=== PATIENT | female | born 1950 | race Caucasian/White ===

== ENCOUNTER 2019-01-13 00:12 | Outpatient (CLI) | payer MEDICARE, BC, SELFPAY ==
--- NOTE | 2019-01-13 12:50 | DI.DEXA_ITS ---
EXAM: XR DEXA BONE DENSITY W/WO ESTELA INDICATION: postmenopausal,screening for osteoporosis, z78.0. COMPARISON: 2006 TECHNIQUE: 2D digital imaging was performed. FINDINGS: The ESTELA image shows no evidence of compression fractures. The bone mineral density measurements of t he lumbar spine correspond to a total T-score of 2.0, in the normal range. This represents an increa se in bone density of 14.2 percent. The bone mineral density measurements of the left hip correspond to a total T-score of 1.4, also in the normal range. This is a 6.4 percent increase when compared w ith 2006. The bone mineral density measurements of the left forearm correspond to a total T-score of 0.9, in the normal range. The forearm was not imaged on the previous exam. IMPRESSION: Normal bone mineral density.
== END 2019-01-13 00:32 ==
PROVIDERS: PCP Nurse Practitioner Family; Visit Provider Nurse Practitioner Family
DX: Z13.820 Encounter for screening for osteoporosis (principal); Z78.0 Asymptomatic menopausal state
CPT/HCPCS: 77080

== ENCOUNTER 2020-09-25 03:12 | Outpatient (CLI) | payer OTHER, SELFPAY ==
[2020-09-25 07:44] LABS: Hemoglobin A1C 5.7 % (<5.7)
[2020-09-25 08:35] LABS: Anion Gap 10.4 mmol/L (3-11); BUN 23 mg/dL (7-18); CO2 26.6 mmol/L (21.0-32.0); CREATININE 0.7 mg/dL (0.55-1.02); Calcium 8.9 mg/dL (8.5-10.1); Calculated LDL 130 mg/dL (<100); Chloride 108 mmol/L (98-107); Cholesterol 206 mg/dL (<200); Glucose 94 mg/dL (74-106); HDL Cholesterol 61 mg/dL (40-60); Potassium 4.5 mmol/L (3.5-5.1); Sodium 145 mmol/L (136-145); TSH 1.67 uIU/mL (0.36-3.74); Triglyceride 75 mg/dL (<150)
[2020-09-25 09:07] LABS: FREE T4 0.88 ng/dL (0.76-1.46)
== END 2020-09-25 03:13 | disposition home or self-care (01) ==
LOC: LBO 03:12
PROVIDERS: PCP Nurse Practitioner Family; Visit Provider Nurse Practitioner Family
DX: E04.9 Nontoxic goiter, unspecified (principal); E78.5 Hyperlipidemia, unspecified; R73.01 Impaired fasting glucose
CPT/HCPCS: 36415; 80048; 80061; 83036; 84439; 84443

== ENCOUNTER 2020-12-31 04:36 | Emergency (ER) | payer OTHER, SELFPAY ==
[2020-12-31] VITALS (37 sets, daily range): BP systolic 162–186; BP diastolic 72–89; PULSE 81–99; RESP 13–23; TEMP 36.7; O2SAT 97–100
--- NOTE | 2020-12-31 04:30 | RT.EKG_ITS ---
APPROVED REPORT Exam: Resting ECG Reason for Exam: chest pain Patient Location: E HR:88 bpm ECG Measurements Heart Rate 88 AXIS UT 219 P 74 QRSd 151 QRS -13 QT 401 T 130 QTc 486 Conclusion Sinus rhythm...normal P axis, V-rate 60- 99 Borderline prolonged UT interval...UT >212, V-rate 50- 90 Left bundle branch block...QRSd>120, broad/notched R ST elevation secondary to IVCD...Multiple VCG criteria Physician: Rate 88, sinus rhythm, left bundle branch block, no prior EKG for comparison, negative SCA RBOSSA criteria
--- NOTE | 2020-12-31 05:07 | W.ED.GENAD ---
Discharge Plan Disposition [facility] Condition: Serious Discharge Details Clinical Impression: Non-ST elevation PA (NSTEMI), Complete left bundle branch block Primary Care Provider: Yudy Vigil ED Provider: Marilin Fitzpatrick Home Meds and New Rx's Prescriptions: No Action Shingrix (PF) 50 mcg/0.5 mL suspension for reconstitution 0.5 ml IM ONCE Qty: 1 RF: 0 multivitamin 1 EACH tablet 1 ea PO DAILY RF: 0 ibuprofen [Advil] 200 mg Tablet 200 mg PO Q6H PRNRF: 0 cholecalciferol (vitamin D3) [Vitamin D3] 10 mcg (400 unit) Capsule 10 mcg PO DAILY RF: 0 Discharge Data Discharge Date/Time-TO BE ENTERED AT DEPARTURE: 12/31/20 08:43 Medical Decision Making <Ric Prieto DO - Last Filed: 12/31/20 08:12> 70-year-old female with a past medical history of being prediabetic, high cholesterol, thyroid goiter, presents today for evaluation of chest pain. Patient states that yesterday she did a significant amount of raking, shortly after which she developed some mild chest tightness in her upper chest and right and left shoulders. She describes it as a mild ache in tightness, no severe pain. No significant pleuritic chest pain. She denies any history of pulmonary embolism in the past. She denies any exertional chest discomfort. She denies any personal or family history of cardiac disease. Currently she states that her pain is only 2 out of 10. No other complaints at this time. No other modifying factors. Symptoms are not changed by sitting up or lying back. Symptoms are unchanged by deep breath. She denies any recent long trips or surgeries, she denies any exogenous estrogen use. Physical exam demonstrates no reproducible chest wall tenderness, no rash to suggest shingles, no calf tenderness. No other abnormalities. Differential includes PE, less likely ACS but this is certainly on the differential with her age and risk factors. EKG shows evidence of a left bundle branch block, no prior EKG for comparison. Will give full dose aspirin. Pain is only 2 out of 10 at this point, I do not feel that nitroglycerin is needed right now. Get a CTA pending D-dimer, monitor closely and reassess. 7 AM Laboratory work-up is returned, no white count bandemia or left shift, D-dimer 673, proBNP is 999 suggesting potential for mild cardiac strain. Troponin has returned positive at 0.5, correlating with proBNP there may be a heart strain from recent cardiac ischemia. We will heparinize the patient and give 300 of Plavix. We did contact [facility] and discussed the case with Dr. Stoddard, he agrees with the heparin and Plavix, does recommend further cardiac evaluation however they have no beds at this current time. They will place the patient on the list. Recommend admission at [facility] for the time being. Will contact hospitalist. 7:45 AM I was called back by Dr. Miller, and at this time he reviewed the case with his neighborhood planner, and they recommend adding ticagrelor in addition to his current treatment. They also feel that because of the left bundle branch block, of uncertain age etiology that this should be treated emergently with cardiac catheterization. I did ask if we should use thrombolytics and at this point they recommend holding off on any thrombolytics and continuing the heparinization. Recommend prompt transfer to [facility]. Case will be signed out to my colleague Dr. Ai Fitzpatrick until the patient is transferred to [facility]. On reassessment the patient states her pain is essentially 0-1 at this time, she feels well otherwise. EKG 4:46 AM Rate 88, sinus rhythm, left bundle branch block, no prior EKG for comparison, negative SCARBOSSA criteria <Marilin Fitzpatrick MD - Last Filed: 01/07/21 17:19> Radha Nam is a 70 y/o woman with NSTEMI, on heparin gtt signed out to by Dr. Prieto with transfer to [facility] Ms Sql Server Developer pending, awaiting approval from [facility]. 8:17 Contacted by [facility] cardiology team, accepting physician luceor Maya to send now with medics by ground. Plan for transfer. Pt remains pain free. Pt left ED with medics without further issue. Medical Records Medical records reviewed: Yes I reviewed the patient's medical records. HPI <Ric Prieto DO - Last Filed: 12/31/20 08:12> General Date/Time Provider Initiated Documentation: 12/31/20 04:54. HPI Narrative: 70-year-old female with a past medical history of being prediabetic, high cholesterol, thyroid goiter, presents today for evaluation of chest pain. Patient states that yesterday she did a significant amount of raking, shortly after which she developed some mild chest tightness in her upper chest and right and left shoulders. She describes it as a mild ache in tightness, no severe pain. No significant pleuritic chest pain. She denies any history of pulmonary embolism in the past. She denies any exertional chest discomfort. She denies any personal or family history of cardiac disease. Currently she states that her pain is only 2 out of 10. No other complaints at this time. No other modifying factors. Symptoms are not changed by sitting up or lying back. Symptoms are unchanged by deep breath. She denies any recent long trips or surgeries, she denies any exogenous estrogen use. Related Data Home Medications Medication Instructions Recorded Confirmed multivitamin 1 ea PO DAILY 07/25/13 12/31/20 varicella-zoster glycoE [id number] 0.5 ml IM ONCE #1 ea 07/27/20 07/27/20 adj(PF) 50 mcg/0.5 mL IM susp, kit cholecalciferol (vitamin D3) 10 mcg PO DAILY 12/31/20 12/31/20 [Vitamin D3] ibuprofen [Advil] 200 mg PO Q6H PRN 12/31/20 12/31/20 Previous Rx's Medication Instructions Recorded varicella-zoster glycoE vacc-[id number] 0.5 ml IM ONCE #1 ea 07/27/20 adj(PF) 50 mcg/0.5 mL IM susp, kit Allergies Allergy/AdvReac Type Severity Reaction Status Date / Time doxycycline Allergy Mild ITCHING Unverified 12/31/20 07:24 HANDS AND FEET Penicillins Allergy Unknown Unverified 12/31/20 07:24 General Stated Complaint: Chest Pain RICHARD: 3 Review of Systems <Ric Prieto DO - Last Filed: 12/31/20 08:12> All systems reviewed & are unremarkable except as noted in HPI and below PFSH <Ric Prieto DO - Last Filed: 12/31/20 08:12> Medical History Hyperlipidemia Ocular migraine Prediabetes Thyroid goiter TMJ (temporomandibular joint syndrome) Surgical History S/P cholecystectomy (03/05/04) S/P colonoscopy (09/02/18) S/P exploratory laparotomy (~1985) For evaluation of infertility Family History Mother , at 57 Gallbladder cancer Father , at 86 of PNA Parkinson disease Brother Heart disease Hypertension Asthma Maternal Grandfather , in his 90s No problems noted. Maternal Grandmother , in her 60s of PA Heart disease Myocardial infarction Paternal Grandfather , at 57 of leukemia Leukemia Paternal Grandmother , at 80 Cancer Unknown type Social History Smoking/Tobacco Use Status: Never Second Hand Exposure: Yes Smoking risk assessment performed?: Yes Alcohol Intake: never Drug use: Never Caregiver/Support person: No Household members: spouse Housing: house Communication Needs: None Pets and animals: Yes Pets and animals: dog(s) Current gender identity: female What is your relationship status?: How often do you talk on the phone with friends or family?: three or more times per week How often do you get together with friends or relatives?: decline to answer How often do you attend religious or voodoo services?: decline to answer Do you belong to any clubs or organized social groups?: decline to answer Panel score (0-1 are the most socially isolated patients): 2 What type of physical activity do you participate in: other Duration: < 15 minutes/day Frequency: decline to answer Elissa/Baptist: No preference Special elissa needs: No Seatbelt use: always Drive intox or ride w/intox grain combine driver: No Do you feel safe in your relationship?: Yes History History 0 Para Hx # Term Pregnancies Multiple births Hx # Pregnancies Ectopic pregnancies AB induced Hx Number of Living Children AB spontaneous Exam <Ric Prieto DO - Last Filed: 12/31/20 08:12> Narrative Exam Narrative: 1.Const: Well-nourished, Well-developed, appearing stated age 2.Eyes: PERRL, no conjunctival injection, and symmetrical lids. 3.ENT: Atraumatic external nose and ears. Moist MM. Neck: Symmetric, trachea midline, No thyromegaly. 4.CVS: +S1/S2, No murmurs or gallops. Peripheral pulses 2+ and equal in all extremities. Brisk capillary refill in all extremities. No reproducible chest pain. 5.RESP: Unlabored respiratory effort. Clear to auscultation bilaterally. No wheezes rales or rhonchi 6.GI: Soft, Nontender/Nondistended, No hepatosplenomegaly. No guarding or rebound. 7.MSK: Normocephalic/Atraumatic, Extremities w/o deformity or ttp No cyanosis or clubbing, Normal movement of all extremities, no calf tenderness. 8.Skin: Warm, Dry. No rashes or lesions. 9.Neuro: mgmt consultant II-XII grossly intact. Sensation grossly intact, no focal neurologic deficits. 10.Psych: (AAO) x3. Appropriate mood and affect Course <Ric Prieto DO - Last Filed: 12/31/20 08:12> Vital Signs Vital signs: Vital Signs Temperature 36.7 C 12/31/20 04:58 Pulse 91 H 12/31/20 04:58 Respiratory Rate 18 12/31/20 04:58 Blood Pressure 162/89 H 12/31/20 04:58 Pulse Oximetry 99 12/31/20 04:58 Temperature 36.7 C 12/31/20 04:58 Temperature Source Temporal Artery Scan 12/31/20 04:58 Pulse 91 H 12/31/20 04:58 Respiratory Rate 18 12/31/20 04:58 Blood Pressure 162/89 H 12/31/20 04:58 Blood Pressure Position Sitting 12/31/20 04:58 Pulse Oximetry 99 12/31/20 04:58 Oxygen Delivery Method Room Air 12/31/20 04:58 Oxygen Flow Rate 0 12/31/20 04:58 Pain Level 0 12/31/20 04:58 Critical Care Time <Ric Prieto DO - Last Filed: 12/31/20 08:12> Critical Care Time Critical Care Time: Yes Total Critical Care Time: 45 Attestation: Upon my evaluation, this patient had a high probability of imminent or life-threatening deterioration, which required my direct attention, intervention, and personal management. I have personally provided 45 minutes of critical care time exclusive of time spent on separately billable procedures. Time includes review of laboratory data, radiology results, discussion with consultants, and monitoring for potential decompensation. Interventions were performed as documented. Sign Out <Ric Prieto DO - Last Filed: 12/31/20 08:12> Sign Out Data: Sign Out Comment: NSTEMI, going to [facility] for cardiac catheterization, currently heparinized. Awaiting bed confirmation Last updated by Ric Prieto DO at 12/31/20 08:01
[2020-12-31] MEDS: Aspirin 81 MG CHEW 324 MG CH (05:15)
[2020-12-31 05:19] LABS: Abs Immature Grans 0.02 10^3/uL (0.0-0.06); Absolute Basophil Count 0.06 10^3/uL (0.0-0.2); Absolute Eosinophil Count 0.24 10^3/uL (0.0-0.7); Absolute Lymphocyte Count 2.49 10^3/uL (1.2-3.4); Absolute Neutrophil Count 4.36 10^3/uL (1.2-6.7); Basophils % 0.8; Eosinophils % 3.1; HCT 43.3 % (36.0-46.0); HGB 14.2 g/dL (11.2-15.7); Immature Grans % 0.3; MCH 28.9 pg (27.0-33.0); MCHC 32.8 % (32.0-36.0); MPV 10.2 fL (8.0-11.0); Monocytes % 7.7; Neutrophils % 56.1; Nucleated RBC 0 %; Platelet Count 298 10^3/uL (130-400); RBC 4.92 10^6/uL (3.93-5.22); RDW 12.6 % (11.7-14.6); RDW-SD 40.6 fL; WBC 7.77 10^3/uL (4.4-10.8)
[2020-12-31 05:36] LABS: PTT Activated 23.9 sec (21.0-27.5); Prothrombin Time 10.2 sec (9.3-11.0)
[2020-12-31 05:40] LABS: ALT 31 U/L (14-59); AST 20 U/L (15-37); Alkaline Phosphatase 104 U/L (46-116); Anion Gap 8.2 mmol/L (3-11); BUN 21 mg/dL (7-18); Bilirubin, Total 0.8 mg/dL (0.2-1.0); CO2 28.8 mmol/L (21.0-32.0); Calcium 9.2 mg/dL (8.5-10.1); Chloride 106 mmol/L (98-107); Estimated GFR 55.14 (mL/min/1.73m2); Glucose 137 mg/dL (74-106); Lipase 164 U/L (73-393); NT-proBNP 999 pg/mL (<300); Sodium 143 mmol/L (136-145); Total Protein 7.1 g/dL (6.4-8.2); Troponin I 0.51 ng/mL (<0.06)
--- NOTE | 2020-12-31 05:45 | DI.CT_ITS ---
Exam(s) CT CHEST PE CTA EXAM: CT CHEST PE CTA CLINICAL HISTORY: nstemi, sob, cp. TECHNIQUE: Imaging Protocol: Axial CT angiography was performed with multi-slice acquisition and mu lti-planar and/or 3D reconstructions. CONTRAST MATERIAL: Intravenous: Omnipaque 350 Contrast volume:100 ml COMPARISON: CT HEAD AND CSPINE W/O CONTRAST from 12/31/2015 FINDINGS: Pulmonary Arteries: No evidence of filling defect to suggest pulmonary emboli. Tracheobronchial tree: Patent where visualized. Mediastinum and Liliane: No dominant adenopathy or fluid collection. Pulmonary parenchyma: No consolidation or dominant measurable mass. Atelectasis versus scarring lingu la. Expiratory changes. Pleura: No effusion or pneumothorax. Heart: The heart is not dilated. No coronary artery calcifications are seen. Aorta: Thoracic aorta non-dilated. Atherosclerotic changes descending aorta and upper abdominal aorta . Upper abdomen: Status post cholecystectomy. Severe narrowing at proximal celiac axis. Bones: Degenerative disc changes thoracic spine. Thyroid: Enlargement of both lobes, unchanged from prior cervical spine CT.. No visible masses. IMPRESSION: No evidence of pulmonary embolism. Severe narrowing the proximal celiac axis. Stable thyroid enlargement. RADIATION DOSE DELIVERED: 572.12mGy.cm Total DLP DATA REPOSITORY: All CT scans at this facility are submitted to the National Radiology Data Registry (NRDR) Dose Index Registry (DIR) with the [employer] (ACR). RADIATION OPTIMIZATION: All CT scans at this facility use at least one of these dose optimization te chniques: automated exposure control; mA and/or kV adjustment per patient size (includes targeted exa ms where dose is matched to clinical indication); or iterative reconstruction.
[2020-12-31 05:50] LABS: D-Dimer 673 ng/mlFEU (<500)
[2020-12-31] MEDS: Clopidogrel 300 MG TAB PO (06:34)
[2020-12-31] MEDS: Omnipaque 350 MG/ML 100 ML BTL IJ (06:34)
[2020-12-31] MEDS: Normal Saline Flush 10 ML SYR IVP (06:35)
[2020-12-31] MEDS: Normal Saline - Diluent 50 ML VIAL IV (06:35)
--- NOTE | 2020-12-31 07:14 | DI.VRAD_ITS ---
PROCEDURE INFORMATION: Exam: CTA Chest With Contrast Exam date and time: 12/31/2020 6:00 AM Age: 70 years old Clinical indication: Shortness of breath; Chest pressure; Prior surgery; Surgery date: 6+ months; Surgery type: Cholecystectomy; Patient HX: Nstemi, SOB, chest pain TECHNIQUE: Imaging protocol: Computed tomographic angiography of the chest with contrast. 3D rendering (Not supervised by radiologist): MIP and/or 3D reconstructed images were created by the technologist. Radiation optimization: All CT scans at this facility use at least one of these dose optimization techniques: automated exposure control; mA and/or kV adjustment per patient size (includes targeted exams where dose is matched to clinical indication); or iterative reconstruction. Contrast material: OMNIPAQUE 350; Contrast volume: 100 ml; Contrast route: INTRAVENOUS (IV); COMPARISON: CT HEAD AND CSPINE W/O CONTRAST 12/31/2015 3:52 PM FINDINGS: Pulmonary arteries: No pulmonary emboli. Aorta: Unremarkable. No aortic aneurysm. No aortic dissection. Other arteries: Severe proximal celiac artery stenosis (series 11 image 60.) Thyroid: Enlarged mildly heterogeneous thyroid. Lungs: Streaky opacity in the lingula, probably related to platelike atelectasis. No significant airspace consolidations. Pleural spaces: Unremarkable. No pneumothorax. No pleural effusion. Heart: Unremarkable. No cardiomegaly. No pericardial effusion. Lymph nodes: Unremarkable. No enlarged lymph nodes. Spleen: 1.3 cm splenule along the splenic margin. Bones/joints: Mild multilevel spondylosis. Soft tissues: Unremarkable. IMPRESSION: 1. Streaky opacity in the lingula, probably related to platelike atelectasis. No significant airspace consolidations. 2. No evidence of acute pulmonary emboli. 3. Severe proximal celiac artery stenosis. 4. Enlarged mildly heterogeneous thyroid. Correlate with thyroid function tests. Dictated and Authenticated by: Nash Stoll MD. Ordering:BHUPENDRA Larios MD
[2020-12-31] MEDS: Atorvastatin 40 MG TAB 80 MG PO (07:20)
[2020-12-31 09:02] LABS: Troponin I 0.95 ng/mL (<0.06)
== END 2020-12-31 08:43 | disposition short-term general hospital (02) ==
PROVIDERS: Student in an Organized Health Care Education/Training Program; Emergency Provider Student in an Organized Health Care Education/Training Program; PCP Nurse Practitioner Family
DX: I21.4 Non-ST elevation (NSTEMI) myocardial infarction (principal); I44.7 Left bundle-branch block, unspecified; R06.02 Shortness of breath
CPT/HCPCS: 36415; 71275; 80053; 83690; 93005; 96365; 96376; 99291; 83880; 84484; 85025; 85379; 85610; 85730; 93010; J3490

== ENCOUNTER 2021-01-23 04:32 | Outpatient (CLI) | payer OTHER, SELFPAY ==
[2021-01-23 10:57] LABS: ALT 52 U/L (14-59); AST 33 U/L (15-37); Alkaline Phosphatase 144 U/L (46-116); Anion Gap 8.6 mmol/L (3-11); BUN 18 mg/dL (7-18); Bilirubin, Total 0.8 mg/dL (0.2-1.0); CO2 28.4 mmol/L (21.0-32.0); CREATININE 0.9 mg/dL (0.55-1.02); Calculated LDL 41 mg/dL (<100); Chloride 106 mmol/L (98-107); Cholesterol 103 mg/dL (<200); Glucose 109 mg/dL (74-106); HDL Cholesterol 53 mg/dL (40-60); Potassium 4.4 mmol/L (3.5-5.1); Sodium 143 mmol/L (136-145); Total Protein 6.7 g/dL (6.4-8.2); Triglyceride 48 mg/dL (<150)
== END 2021-01-23 04:33 | disposition home or self-care (01) ==
LOC: LBO 04:32
PROVIDERS: PCP Nurse Practitioner Family; Visit Provider Nurse Practitioner Family
DX: E78.5 Hyperlipidemia, unspecified (principal); I21.4 Non-ST elevation (NSTEMI) myocardial infarction
CPT/HCPCS: 36415; 80053; 80061

== ENCOUNTER 2021-01-25 10:00 | Outpatient (RCR) | payer OTHER, SELFPAY | END 2021-01-27 23:59 | disposition home or self-care (01) | LOC: CR 10:00 | PROVIDERS: PCP Nurse Practitioner Family; Visit Provider Family Medicine | DX: Z51.89 Encounter for other specified aftercare (principal); I25.2 Old myocardial infarction | CPT/HCPCS: S9472 ==

== ENCOUNTER 2021-01-27 12:21 | Outpatient (REF) | payer MEDICARE, SELFPAY ==
[2021-01-27 14:06] LABS: C Diff PCR Negative (Negative)
== END 2021-01-27 12:22 | disposition home or self-care (01) ==
LOC: LBN 12:21
PROVIDERS: PCP Nurse Practitioner Family; Visit Provider Nurse Practitioner Family
DX: R19.7 Diarrhea, unspecified (principal)
CPT/HCPCS: 87493

== ENCOUNTER 2021-01-29 12:55 | Outpatient (CLI) | payer OTHER, SELFPAY ==
--- NOTE | 2021-01-29 12:57 | RT.EKG_ITS ---
APPROVED REPORT Exam: Resting ECG Reason for Exam: cad Patient Location: O HR:72 bpm ECG Measurements Heart Rate 72 AXIS IL 173 P 40 QRSd 144 QRS -10 QT 428 T 119 QTc 469 Conclusion Sinus rhythm...normal P axis, V-rate 50- 99 Left bundle branch block...QRSd>120, broad/notched R
== END 2021-01-29 12:56 | disposition home or self-care (01) ==
LOC: DI.CARD 12:58
PROVIDERS: PCP Nurse Practitioner Family; Referring Provider Nurse Practitioner Family; Visit Provider Internal Medicine Cardiovascular Disease
DX: I21.4 Non-ST elevation (NSTEMI) myocardial infarction (principal); I25.10 Atherosclerotic heart disease of native coronary artery without angina pectoris
CPT/HCPCS: 93010

== ENCOUNTER → 2021-01-29 12:55 | Outpatient (BNVA) | payer OTHER, SELFPAY | PROVIDERS: PCP Nurse Practitioner Family; Referring Provider Nurse Practitioner Family; Visit Provider Internal Medicine Cardiovascular Disease | DX: I25.10 Atherosclerotic heart disease of native coronary artery without angina pectoris (principal); I21.4 Non-ST elevation (NSTEMI) myocardial infarction; I44.7 Left bundle-branch block, unspecified; E78.5 Hyperlipidemia, unspecified | CPT/HCPCS: 93005; 99203; 99214 ==

== ENCOUNTER 2021-02-25 10:00 | Outpatient (RCR) | payer OTHER, SELFPAY | END 2021-02-26 23:59 | disposition home or self-care (01) | LOC: CR 10:00 | PROVIDERS: PCP Nurse Practitioner Family; Visit Provider Family Medicine | DX: Z51.89 Encounter for other specified aftercare (principal); I25.2 Old myocardial infarction; Z95.5 Presence of coronary angioplasty implant and graft | CPT/HCPCS: S9472 ==

== ENCOUNTER → 2021-02-26 13:23 | Outpatient (BNVA) | payer MEDICARE, SELFPAY | PROVIDERS: PCP Nurse Practitioner Family; Referring Provider Nurse Practitioner Family; Visit Provider Internal Medicine Cardiovascular Disease | DX: I25.10 Atherosclerotic heart disease of native coronary artery without angina pectoris (principal); I44.7 Left bundle-branch block, unspecified; E78.5 Hyperlipidemia, unspecified; Z79.899 Other long term (current) drug therapy | CPT/HCPCS: 99213 ==

== ENCOUNTER 2021-03-27 10:00 | Outpatient (RCR) | payer MEDICARE, SELFPAY | END 2021-03-29 23:59 | disposition home or self-care (01) | LOC: CR 10:00 | PROVIDERS: PCP Nurse Practitioner Family; Visit Provider Family Medicine | DX: Z51.89 Encounter for other specified aftercare (principal); I25.2 Old myocardial infarction; Z95.5 Presence of coronary angioplasty implant and graft | CPT/HCPCS: S9472 ==

== ENCOUNTER 2021-04-01 14:47 | Outpatient (RCR) | payer MEDICARE, OTHER, SELFPAY | END 2021-04-25 16:26 | LOC: CR 14:47 | PROVIDERS: PCP Nurse Practitioner Family; Visit Provider Family Medicine | DX: I25.2 Old myocardial infarction (principal); Z95.5 Presence of coronary angioplasty implant and graft; Z51.89 Encounter for other specified aftercare | CPT/HCPCS: S9472 ==

== ENCOUNTER 2021-04-10 10:00 | Outpatient (RCR) | payer MEDICARE, OTHER, SELFPAY | END 2021-04-29 23:59 | disposition home or self-care (01) | LOC: CR 10:00 | PROVIDERS: PCP Nurse Practitioner Family; Visit Provider Family Medicine | DX: I25.2 Old myocardial infarction (principal); Z95.5 Presence of coronary angioplasty implant and graft; Z51.89 Encounter for other specified aftercare | CPT/HCPCS: S9472 ==

== ENCOUNTER → 2021-06-27 13:13 | Outpatient (BNVA) | payer MEDICARE, OTHER, SELFPAY | PROVIDERS: PCP Nurse Practitioner Family; Visit Provider Internal Medicine Cardiovascular Disease | DX: I25.10 Atherosclerotic heart disease of native coronary artery without angina pectoris (principal); I44.7 Left bundle-branch block, unspecified; E78.5 Hyperlipidemia, unspecified | CPT/HCPCS: 99214; 99213 ==

== ENCOUNTER 2021-08-23 01:42 | Outpatient (CLI) | payer MEDICARE, OTHER, SELFPAY ==
--- OUTSIDE RECORDS SUMMARY | 2021-08-23 01:44 | XMS_ITS ---
:1950 Author Care Team Providers Name Role Phone DR. RIVAS GARCIA Primary Care Provider [phone] DR. RIVAS GARCIA Referring Provider [phone] Allergies Code Code System Name Reaction Severity Status Onset 3640 RxNorm Doxycycline ? ? Active ? Penicillins ? ? Active ? Medications Name Status Start Date Stop Date ? ? Advil PM 200 mg-38 mg tablet Active ? Not available Take 1 tablet every day by oral route at bedtime. clobetasol propionate (bulk) Active ? Not available topical solution add three drops to each ear bid ibuprofen 200 mg tablet Active ? Not avai lable Take 1 tablet every 6 hours by oral route as needed. multivitamin Active ? Not available once daily Problems Name Status Onset Date Source ? Polyp of Colon Active 01/27/2018 ? Goiter Active 01/27/2018 ? Hyperlipidemia Active 01/27/2018 ? Hypertensive Disorder Unknown 01/27/2018 ? Temporomandibular Joint Disorder Active 01/27/2018 ? Female Stress Incontinence Active 01/27/2018 ? Acute Dermatitis Active 01/27/2018 ? Notes: states she has a slight heart m urmur states she has TMJ states she has osteo arthritis in her th umbs, knees and hips Procedures Date Name Performed by ? ? Cholecystectomy Information not avai lable ? Colonoscopy Information not avai lable Notes: x3 Notes: exploratory for infertility Results Lab Results None recorded. Past Encounters None recorded. Social History Tobacco Smoking Status Never Smoker Notes: 01/28/18 Vaccine List Vaccine Type Tdap 08/15/2014 Plan of Care Reminders Provider Appointments None recorded. ? ? Lab None recorded. ? ? Referral None recorded. ? ? Procedures None recorded. ? ? Surgeries None recorded. ? ? Imaging None recorded. ? ? Vitals Height Weight BMI Blood Pressure 170.18 cm 99.79 kg 34.5 kg/m2 146/76 mm[Hg]
[2021-08-23 07:22] LABS: HCT 42.3 % (36.0-46.0); HGB 13.5 g/dL (11.2-15.7); MCH 28.8 pg (27.0-33.0); MCHC 31.9 % (32.0-36.0); MCV 90 fL (80-95); MPV 9.9 fL (8.0-11.0); Platelet Count 247 10^3/uL (130-400); RBC 4.68 10^6/uL (3.93-5.22); RDW 12.8 % (11.7-14.6); RDW-SD 42.2 fL; WBC 6.36 10^3/uL (4.4-10.8)
[2021-08-23 07:32] LABS: Hemoglobin A1C 5.6 % (<5.7)
[2021-08-23 08:07] LABS: ALT 27 U/L (14-59); AST 17 U/L (15-37); Alkaline Phosphatase 89 U/L (46-116); Anion Gap 7.6 mmol/L (3-11); BUN 23 mg/dL (7-18); Bilirubin, Total 0.9 mg/dL (0.2-1.0); CO2 29.4 mmol/L (21.0-32.0); CREATININE 0.8 mg/dL (0.55-1.02); Calcium 8.8 mg/dL (8.5-10.1); Calculated LDL 62 mg/dL (<100); Chloride 107 mmol/L (98-107); Cholesterol 147 mg/dL (<200); Glucose 92 mg/dL (74-106); HDL Cholesterol 72 mg/dL (40-60); Potassium 4.3 mmol/L (3.5-5.1); Sodium 144 mmol/L (136-145); TSH (W/Ref FT4) 1.72 uIU/mL (0.36-3.74); Total Protein 6.9 g/dL (6.4-8.2); Triglyceride 66 mg/dL (<150)
== END 2021-08-23 01:43 | disposition home or self-care (01) ==
LOC: LBO 01:43
PROVIDERS: PCP Nurse Practitioner Family; Visit Provider Family Medicine
DX: E78.5 Hyperlipidemia, unspecified (principal); I10 Essential (primary) hypertension; R53.83 Other fatigue; I25.10 Atherosclerotic heart disease of native coronary artery without angina pectoris; R73.9 Hyperglycemia, unspecified
CPT/HCPCS: 36415; 80053; 80061; 85027; 83036; 84443

== ENCOUNTER → 2021-12-26 13:10 | Outpatient (BNVA) | payer MEDICARE, OTHER, SELFPAY | PROVIDERS: PCP Nurse Practitioner Family; Visit Provider Internal Medicine Cardiovascular Disease | DX: I25.2 Old myocardial infarction (principal); I25.10 Atherosclerotic heart disease of native coronary artery without angina pectoris; I44.7 Left bundle-branch block, unspecified; E78.5 Hyperlipidemia, unspecified | CPT/HCPCS: 99213 ==

== ENCOUNTER 2022-04-07 15:23 | Emergency (ER) | payer MEDICARE, OTHER, SELFPAY ==
[2022-04-07 15:39] VITALS: BP 153/70; PULSE 84; RESP 20; TEMP 37.1; O2SAT 98
--- NOTE | 2022-04-07 17:00 | DI.RAD_ITS ---
Exam(s) XR SHOULDER RT COMPLETE 2+V EXAM: XR SHOULDER RT COMPLETE 2+V CLINICAL HISTORY: fall, anterior pain. TECHNIQUE: 2D digital imaging was performed of the right shoulder. Four images were obtained. AP, Grashey, and Y views were obtained. COMPARISON: No exams were available for comparison FINDINGS: BONES: No acute fracture is present. No bony destructive lesion is seen. JOINTS: No dislocation present. Mild degenerative changes are seen at the acromioclavicular joint and glenohumeral joint. SOFT TISSUE: Normal. IMPRESSION: No acute abnormality. DATA REPOSITORY: RADIATION DOSE DELIVERED:
[2022-04-07] MEDS: Acetaminophen 500 MG TAB 1000 MG PO (17:10)
--- NOTE | 2022-04-07 17:45 | DI.VRAD_ITS ---
PROCEDURE INFORMATION: Exam: XR Right Shoulder Exam date and time: 04/07/2022 5:20 PM Age: 71 years old Clinical indication: Other: Fall, anterior pain TECHNIQUE: Imaging protocol: Radiologic exam of the Right shoulder. Views: 2 or more views. COMPARISON: CT CHEST PE CTA 12/31/2020 6:13 AM FINDINGS: Bones/joints: There are mild degenerative changes of the glenohumeral joint. No fracture. No dislocation. Mild degenerative changes of the acromioclavicular joint. Soft tissues: Normal. IMPRESSION: No fracture. Dictated and Authenticated by: Gerry London MD. Ordering:HODA Gayle MD
--- NOTE | 2022-04-07 17:52 | ED.GENADUL_ITS ---
Discharge Plan Disposition Patient Disposition: Home Condition: Stable Discharge Details Clinical Impression: Injury of right shoulder Primary Care Provider: Yudy Vigil ED Provider: Irwin Wilcox Home Meds and New Rx's Prescriptions: Continued triamcinolone acetonide 0.1 % cream 1 applic topical BID Qty: 15 1RF aspirin 81 mg tablet,delayed release (DR/EC) 81 mg PO DAILY multivitamin 1 EACH tablet 1 ea PO DAILY rosuvastatin 20 mg tablet 20 mg PO DAILY Qty: 90 3RF metoprolol succinate 50 mg tablet extended release 24 hr 50 mg PO DAILY Qty: 90 3RF cholecalciferol (vitamin D3) [Vitamin D3] 10 mcg (400 unit) Capsule 10 mcg PO DAILY Discharge Instructions Instructions: Shoulder Sprain (ED), Shoulder Pain (ED) Additional Instructions: Please use sling for comfort and perform range of motion activities 3-4 times daily with sling use. Then slowly increase use of upper extremity as tolerated by pain. You may continue to take [id number] acetaminophen as needed for discomfort just do not take more than 3000 mg in a day. If you develop any new or significant worsening of symptoms return to the emergency department for reassessment otherwise follow-up with your primary care provider if not improving in the next 1 to 2 weeks. Referrals: Yudy Vigil, [facility] [Primary Care Provider] - 2 weeks (If not improving) Discharge Data Discharge Date/Time-TO BE ENTERED AT DEPARTURE: 04/07/22 18:16 Medical Decision Making Patient presenting to the emergency department for chief complaint of fall. Patient states right shoulder injury slight elbow pain. Denies head injury or other complaints. Physical exam shows tenderness to the anterior aspect of the shoulder with extremely painful range of motion with any movement of the shoulder. Elbow has full range of motion, no bony prominence tenderness, and only slight abrasion noted. We will give acetaminophen and perform x-ray imaging of the shoulder due to severe pain. Review of radiological imaging and radiologist interpretation shows no acute findings noted. Will give patient sling for comfort measures and encourage continued use of acetaminophen for pain. We recommend that patient follows up with primary care provider for reassessment if not improving in the next 1 to 2 weeks. After discussion of diagnosis and plan of care patient has no further needs, questions, or concerns and states clear understanding to return to the emergency department for any worsening symptoms. This documentation was generated using [employer] dictation system, please disregard any oddities of phrase or misspellings. Imaging Data Radiologic Study: Imaging: X-Ray Radiologist's impression: Exam(s) PROCEDURE INFORMATION: Exam: XR Right Shoulder Exam date and time: 04/07/2022 5:20 PM Age: 71 years old Clinical indication: Other: Fall, anterior pain TECHNIQUE: Imaging protocol: Radiologic exam of the Right shoulder. Views: 2 or more views. COMPARISON: CT CHEST PE CTA 12/31/2020 6:13 AM FINDINGS: Bones/joints: There are mild degenerative changes of the glenohumeral joint. No fracture. No dislocation. Mild degenerative changes of the acromioclavicular joint. Soft tissues: Normal. IMPRESSION: No fracture. HPI General Mode of arrival: ambulatory . Date/Time Provider Initiated Documentation: 04/07/22 16:16 . Limitations to Documentation: no limitations . Information obtained by: patient and RN notes reviewed . History of Present Illness 71 year old F presents to the emergency department with the chief complaint of Fall with right shoulder injury, described as moderate, with intensity rated at 5. Quality is described as aching and sharp, and is localized to the right and upper extremity. Patient reports no radiation. Patient started experiencing this hour(s) (1) and it has been constant. No relieving factors improve symptom(s), Movement worsens symptoms . Patient notes no other symptoms.. Patient did receive the following treatments prior to arrival, none Related Data Home Medications Medication Instructions Recorded Confirmed multivitamin 1 ea PO DAILY 07/25/13 12/26/21 cholecalciferol (vitamin D3) 10 10 mcg PO DAILY 12/31/20 12/26/21 mcg (400 unit) capsule (Vitamin D3) aspirin 81 mg tablet,delayed 81 mg PO DAILY 01/16/21 12/26/21 release triamcinolone acetonide 0.1 % 1 applic topical BID #15 grams 07/31/21 12/26/21 topical cream metoprolol succinate 50 mg 50 mg PO DAILY #90 tabs 12/30/21 tablet,extended release 24 hr rosuvastatin 20 mg tablet 20 mg PO DAILY #90 tabs 12/30/21 Previous Rx's Medication Instructions Recorded triamcinolone acetonide 0.1 % 1 applic topical BID #15 grams 07/31/21 topical cream metoprolol succinate 50 mg 50 mg PO DAILY #90 tabs 12/30/21 tablet,extended release 24 hr rosuvastatin 20 mg tablet 20 mg PO DAILY #90 tabs 12/30/21 Allergies Allergy/AdvReac Type Severity Reaction Status Date / Time doxycycline Allergy Mild ITCHING Verified 07/31/21 11:14 HANDS AND FEET Penicillins Allergy Unknown Verified 07/31/21 11:14 General Stated Complaint: Orthopedic RICHARD: 4 Review of Systems Narrative: 6 systems reviewed and unremarkable except what is marked below. Musculoskeletal Musculoskeletal: Reports as per HPI, Reports arthralgias, Reports joint swelling, Reports limited range of motion, Denies numbness, Denies radiating pain into limb and Denies tingling Neurologic Neurologic: Denies numbness and Denies tingling [facility] All Active Problems (Updated 04/07/22 @ 18:02 by Irwin Wilcox NP) Injury of right shoulder (Acute) Multinodular thyroid (Acute) 12/2020- stable size per CT at [facility] Coronary artery disease (Chronic) NSTEMI 12/2020, s/p ASAF to ramus, followed by cardiology at [facility] Complete left bundle branch block (Acute) Prediabetes (Chronic) Hyperlipidemia (Chronic) Thyroid goiter (Chronic) Medical History Ocular migraine TMJ (temporomandibular joint syndrome) Surgical History S/P cholecystectomy (03/05/04) S/P colonoscopy (09/02/18) S/P drug eluting coronary stent placement (12/31/20) ASAF to ramus S/P exploratory laparotomy (~1985) For evaluation of infertility Family History Mother , at 57 Gallbladder cancer Father , at 86 of PNA Parkinson disease Brother Heart disease Hypertension Asthma Maternal Grandfather , in his 90s No problems noted. Maternal Grandmother , in her 60s of ID Heart disease Myocardial infarction Paternal Grandfather , at 57 of leukemia Leukemia Paternal Grandmother , at 80 Cancer Unknown type Social History Smoking/Tobacco Use Status: Never Second Hand Exposure: Yes Smoking risk assessment performed?: Yes Alcohol Intake: never Drug use: Never Caregiver/Support person: No Household members: spouse Housing: house Communication Needs: None Pets and animals: Yes Pets and animals: dog(s) Current gender identity: female What is your relationship status?: How often do you talk on the phone with friends or family?: three or more times per week How often do you get together with friends or relatives?: decline to answer How often do you attend presybeterian or pentecostal services?: decline to answer Do you belong to any clubs or organized social groups?: decline to answer Panel score (0-1 are the most socially isolated patients): 2 What type of physical activity do you participate in: other Duration: < 15 minutes/day Frequency: decline to answer Elissa/Yarsanism: No preference Special elissa needs: No Seatbelt use: always Drive intox or ride w/intox pizza driver: No Do you feel safe at home: Yes Do you feel safe in your relationship?: Yes History History 0 Para Hx # Term Pregnancies Multiple births Hx # Pregnancies Ectopic pregnancies AB induced Hx Number of Living Children AB spontaneous Exam Const General: cooperative, no acute distress and not ill appearing Orientation: alert, awake and oriented x3 HENMT Head: normal to inspection, normocephalic and atraumatic Resp Effort & Inspection: normal respiratory effort, able to speak in complete sentences and no respiratory distress Auscultation: clear to auscultation bilaterally Cardio Rate: regular rate Rhythm: regular rhythm Heart Sounds: S1 normal and S2 normal Skin General skin exam: no rashes or lesions noted Neuro General: patient alert, patient awake, patient oriented x3, moves all extremities and no focal motor deficits Sensory Exam: no sensory deficits noted Extrem General: normal exam except as noted Right upper extremity: shoulder/upper arm Details: normal to inspection, tenderness Location: of the A-C joint and over the subacromial bursa, axillary nerve sensory function normal and abnormal ROM Details: held in an abnormal fashion Details: in ADduction and in internal rotation, pain with active ROM and pain with passive ROM; no abrasions, no lacerations, no ecchymosis and no deformity and elbow/forearm Details: normal ROM, abrasion and distal pulses intact; no tenderness and no ecchymosis Course Vital Signs Vital signs: Vital Signs Temperature 37.1 C 04/07/22 15:39 Pulse 84 04/07/22 15:39 Respiratory Rate 20 04/07/22 15:39 Blood Pressure 153/70 H 04/07/22 15:39 Pulse Oximetry 98 04/07/22 15:39 Temperature 37.1 C 04/07/22 15:39 Temperature Source Oral 04/07/22 15:39 Pulse 84 04/07/22 15:39 Respiratory Rate 20 04/07/22 15:39 Blood Pressure 153/70 H 04/07/22 15:39 Blood Pressure Position Sitting 04/07/22 15:39 Pulse Oximetry 98 04/07/22 15:39 Oxygen Delivery Method Room Air 04/07/22 15:39 Oxygen Flow Rate 0 04/07/22 15:39 Pain Level 5 04/07/22 15:39
== END 2022-04-07 18:16 | disposition home or self-care (01) ==
PROVIDERS: Emergency Provider Nurse Practitioner Family; PCP Nurse Practitioner Family
DX: S49.91XA Unspecified injury of right shoulder and upper arm, initial encounter (principal); W19.XXXA Unspecified fall, initial encounter
CPT/HCPCS: 99283; 73030; 99282

== ENCOUNTER 2022-08-21 01:56 | Outpatient (CLI) | payer MEDICARE, OTHER, SELFPAY ==
--- NOTE | 2022-08-21 07:54 | DI.MRI_ITS ---
Exam(s) MR UPPER JOINT RT WO EXAM: MR UPPER JOINT RT WO CLINICAL HISTORY: right shoulder injury, ?rotator cuff tear,S49.91XA. TECHNIQUE: Multiplanar multisequence MRI was performed. COMPARISON: CR,XR XR SHOULDER RT COMPLETE 2+V from 04/07/2022 FINDINGS: BONES: There is no fracture or contusion pattern. JOINTS: Degenerative changes are seen at the acromioclavicular joint. The humeral head appears super iorly subluxed relative to the glenoid consistent with rotator cuff tear. TENDONS: Supraspinatus: There is a complete tear of the supraspinatus tendon with retraction to the level of t he acromioclavicular joint. Infraspinatus: There also appears to be a full-thickness tear through the superior aspect of the infr aspinatus tendon. Subscapularis: Unremarkable. Teres Minor: Unremarkable. Biceps and Minor Hill: Unremarkable. MUSCLES: There is mild fatty atrophy of the supraspinatus, infraspinatus and teres minor muscles. GLENOID LABRUM: Unremarkable on this noncontrast examination. SOFT TISSUES: Unremarkable. LIGAMENTS: Unremarkable. OTHER: There is fluid in the subacromial subdeltoid bursa consistent with a rotator cuff tear. IMPRESSION: 1. Complete tear of the supraspinatus tendon with retraction to the level of the acromioclavicular leslie int. 2. Full-thickness tear of the superior aspect of the infraspinatus tendon. 3. Mild fatty atrophy of the supraspinatus, infraspinatus and teres minor muscles. 4. Superior subluxation of the humeral head consistent with rotator cuff tear. 5. Degenerative changes of the acromioclavicular joint. DATA REPOSITORY:
== END 2022-08-21 02:16 ==
LOC: DI 01:56
PROVIDERS: PCP Nurse Practitioner Family; Visit Provider Nurse Practitioner Family
DX: S46.011A Strain of muscle(s) and tendon(s) of the rotator cuff of right shoulder, initial encounter; X58.XXXA Exposure to other specified factors, initial encounter
CPT/HCPCS: 73221

== ENCOUNTER 2022-08-29 02:11 | Outpatient (CLI) | payer MEDICARE, OTHER, SELFPAY ==
[2022-08-29 07:58] LABS: BUN 22 mg/dL (7-18); CREATININE 0.8 mg/dL (0.55-1.02); Calcium 8.9 mg/dL (8.5-10.1); Calculated LDL 49 mg/dL (<100); Chloride 106 mmol/L (98-107); Cholesterol 133 mg/dL (<200); Estimated GFR 79.71 (mL/min/1.73m2); Glucose 106 mg/dL (74-106); HDL Cholesterol 72 mg/dL (40-60); Potassium 4.2 mmol/L (3.5-5.1); Sodium 138 mmol/L (136-145); TSH (W/Ref FT4) 2.12 uIU/mL (0.36-3.74); Triglyceride 60 mg/dL (<150)
== END 2022-08-29 02:12 | disposition home or self-care (01) ==
PROVIDERS: PCP Nurse Practitioner Family; Visit Provider Nurse Practitioner Family
DX: E04.2 Nontoxic multinodular goiter (principal); I25.10 Atherosclerotic heart disease of native coronary artery without angina pectoris
CPT/HCPCS: 36415; 80048; 80061; 84443

== ENCOUNTER → 2022-09-17 09:04 | Outpatient (BNVA) | payer MEDICARE, OTHER, SELFPAY | PROVIDERS: PCP Nurse Practitioner Family; Referring Provider Nurse Practitioner Family; Visit Provider Student in an Organized Health Care Education/Training Program | DX: S46.011A Strain of muscle(s) and tendon(s) of the rotator cuff of right shoulder, initial encounter (principal); W19.XXXA Unspecified fall, initial encounter | CPT/HCPCS: 99204; 99213 ==

== ENCOUNTER 2022-12-25 11:14 | Outpatient (CLI) | payer MEDICARE, OTHER, SELFPAY ==
--- NOTE | 2022-12-25 11:15 | RT.EKG_ITS ---
APPROVED REPORT Exam: Resting ECG Reason for Exam: CAD Patient Location: O HR:75 bpm ECG Measurements Heart Rate 75 AXIS MT 190 P 64 QRSd 146 QRS -31 QT 418 T 102 QTc 467 Conclusion Sinus rhythm...normal P axis, V-rate 50- 99 Left bundle branch block...QRSd>120, broad/notched R Baseline wander in lead(s) III
== END 2022-12-25 11:15 | disposition home or self-care (01) ==
LOC: DI.CARD 11:30
PROVIDERS: PCP Nurse Practitioner Family; Visit Provider Internal Medicine Cardiovascular Disease
DX: I25.10 Atherosclerotic heart disease of native coronary artery without angina pectoris (principal)
CPT/HCPCS: 93010

== ENCOUNTER → 2022-12-25 11:14 | Outpatient (BNVA) | payer MEDICARE, OTHER, SELFPAY | PROVIDERS: PCP Nurse Practitioner Family; Referring Provider Nurse Practitioner Family; Visit Provider Internal Medicine Cardiovascular Disease | DX: I25.10 Atherosclerotic heart disease of native coronary artery without angina pectoris (principal); E78.5 Hyperlipidemia, unspecified | CPT/HCPCS: 93005; 99214 ==

== ENCOUNTER → 2023-08-10 01:43 | Outpatient (CLI) | payer MEDICARE, OTHER, SELFPAY ==
--- NOTE | 2023-08-10 07:30 | DI.CT_ITS ---
Exam(s) CT ABDOMEN CTA EXAM: CT ABDOMEN CTA CLINICAL HISTORY: Severe narrowing at proximal celiac axis,I72.8. TECHNIQUE: Imaging Protocol: Axial CT angiography was performed with multi-slice acquisition and m ulti-planar and/or 3D reconstructions. CONTRAST MATERIAL: Intravenous: Omnipaque 350 Contrast volume:100mL Oral: No COMPARISON: CT CT CHEST PE CTA from 12/31/2020 FINDINGS: ABDOMEN AND PELVIS: Abdomen: Celiac axis/mesenteric arteries: There is persistent significant stenosis at the origin of the celiac axis. No poststenotic dilatation is seen. The superior mesenteric artery and inferior mesenteric a rtery origins are unremarkable. Renal Arteries: No evidence of occlusion or significant stenosis. Aorta: No evidence of occlusion or significant stenosis. No aneurysm or dissection. Atherosclerotic calcification is present. Pelvis: Iliac Arteries: No evidence of occlusion or significant stenosis. There is mild calcification of the right common iliac artery. ABDOMEN: Lung bases: Cardiomegaly. Liver: Normal density. No measurable mass. Portal, Superior Mesenteric, and Splenic Veins: Due to the timing of the bolus there is diminished op acification of the veins. No gross abnormalities identified. Gallbladder and Biliary Tract: Status post cholecystectomy. No significant biliary ductal dilatation . Pancreas: Normal density, no abnormal calcifications or inflammatory process. There is a stable pancr eatic cyst. Spleen: Normal. Adrenals: No masses seen. Kidneys: Normal size, contour and axis. No radiodense stones or obstructive uropathy. No masses seen. Bowel: No obstruction or bowel wall thickening. Peritoneal Cavity: No ascites, collection or mesenteric inflammatory response. No free air. Lymph Nodes: Within normal limits. Bones: Within normal limits for the patient's age. Soft Tissues: Unremarkable. IMPRESSION: 1. Stable significant stenosis at the origin of the celiac axis. 2. No acute abdominal process. RADIATION DOSE DELIVERED: 660.16mGy.cm Total DLP 660.16mGy.cm Total DLP DATA REPOSITORY: All CT scans at this facility are submitted to the National Radiology Data Registry (NRDR) Dose Index Registry (DIR) with the [employer] (A[employer]). RADIATION OPTIMIZATION: All CT scans at this facility use at least one of these dose optimization te chniques: automated exposure control; mA and/or kV adjustment per patient size (includes targeted exa ms where dose is matched to clinical indication); or iterative reconstruction.
--- NOTE | 2023-08-10 07:30 | DI.US_ITS ---
Exam(s) US THYROID EXAM: US THYROID CLINICAL HISTORY: reassess thyroid goiter,multinodular goiter,e04.2. TECHNIQUE: Ultrasound thyroid performed using standard protocol. COMPARISON: No priors for comparison. FINDINGS: ISTHMUS: 11 mm RIGHT LOBE: Size: 7.6 x 2.9 x 3.8 cm Echogenicity: Diffuse heterogeneity of the thyroid gland. Vascularity: Normal. Nodules: There is a 3.0 x 1.7 x 2.6 cm solid hypoechoic mass in the lower pole. It is consistent wit h a TI rads level 4 nodule. Due to its size, FNA is recommended. There is a 2.4 x 1.4 x 2.9 cm sarah beth d slightly hyperechoic mass in the more superior portion of the right lobe of the thyroid gland. It is consistent with a TI rads level 3 nodule. Due to its size, FNA is recommended. LEFT LOBE: Size: 6.8 x 2.7 x 2.7 cm Echogenicity: There is diffuse heterogeneity of the thyroid gland. Vascularity: Normal. Nodules: In the lower pole, there is a 2.5 x 1.9 x 3.4 cm solid isoechoic nodule. It is consistent w ith a TI rads level 3 nodule. Due to its size, FNA is recommended. In the more superior pole there is a 0.8 x 0.9 x 1 0 cm nodule which is solid and hypoechoic. Peripheral calcification is noted. It is consistent with a TI rads level 4 nodule. Due to its size, follow-up is recommended. OTHER FINDINGS: None. IMPRESSION: 1. Enlarged heterogeneous thyroid gland. 2. Bilateral thyroid nodules. There are 3 nodules identified which require biopsy. Please see the destin cody discussion complete DATA REPOSITORY:
[2023-08-10 10:21] LABS: Hemoglobin A1C 5.9 % (<5.7)
[2023-08-10 10:23] LABS: ALT 27 U/L (14-59); AST 27 U/L (15-37); Albumin 4.3 g/dL (3.4-5.0); Alkaline Phosphatase 91 U/L (46-116); Anion Gap 9.4 mmol/L (3-11); BUN 18 mg/dL (7-18); Bilirubin, Total 0.8 mg/dL (0.2-1.0); CO2 29.6 mmol/L (21.0-32.0); CREATININE 0.9 mg/dL (0.55-1.02); Calcium 9.7 mg/dL (8.5-10.1); Calculated LDL 47 mg/dL (<100); Chloride 104 mmol/L (98-107); Cholesterol 146 mg/dL (<200); Estimated GFR 68.77 (mL/min/1.73m2); Glucose 102 mg/dL (74-106); HDL Cholesterol 83 mg/dL (40-60); Potassium 4.5 mmol/L (3.5-5.1); Sodium 143 mmol/L (136-145); TSH (W/Ref FT4) 2.48 uIU/mL (0.36-3.74); Triglyceride 83 mg/dL (<150)
[2023-08-10] MEDS: Normal Saline - Diluent 50 ML VIAL IJ (10:28)
[2023-08-10] MEDS: Omnipaque 350 MG/ML 100 ML BTL IJ (10:29)
[2023-08-10 19:18] LABS: Hepatitis C Ab w Rflx HCV PCR Negative (Negative)
== END ==
PROVIDERS: PCP Nurse Practitioner Family; Visit Provider Nurse Practitioner Family
DX: Z00.00 Encounter for general adult medical examination without abnormal findings (principal); E04.2 Nontoxic multinodular goiter; I77.4 Celiac artery compression syndrome
CPT/HCPCS: 74175; 80053; 80061; 86803; 76536; 83036; 84443; J3490

== ENCOUNTER 2023-12-23 01:46 | Outpatient (CLI) | payer MEDICARE, OTHER, SELFPAY ==
--- NOTE | 2023-12-23 | DI.NM_ITS ---
Exam(s) NM I123 THYROID UP [place] DAY 2 CLINICAL HISTORY: Multinodular goiter, E04.2. COMPARISON: No exams were available for comparison TECHNIQUE: Capsule Dose: 146 uCi I-123 Images: At 4 hours and 24 hours. FINDINGS: Total radioiodine uptake was 6 percent at 4 hours. ([facility] normal RAIU at 4 hours is 6-18 %). The total radioiodine uptake was 19.6% at 24 hours. ([facility] normal RAIU at 24 hours is 10-35 %). IMPRESSION: 4 hour and 24 hour radioiodine uptake values are within normal limits. DATA REPOSITORY:
== END 2023-12-23 02:06 ==
LOC: DI 01:46
PROVIDERS: PCP Nurse Practitioner Family; Visit Provider Student in an Organized Health Care Education/Training Program
DX: E04.2 Nontoxic multinodular goiter (principal)
CPT/HCPCS: 78014; A9512

== ENCOUNTER → 2024-01-21 10:04 | Outpatient (BNVA) | payer MEDICARE, OTHER, SELFPAY | PROVIDERS: PCP Nurse Practitioner Family; Referring Provider Nurse Practitioner Family; Visit Provider Internal Medicine Cardiovascular Disease | DX: I25.10 Atherosclerotic heart disease of native coronary artery without angina pectoris (principal) | CPT/HCPCS: 99213 ==

== ENCOUNTER → 2024-01-22 09:02 | Outpatient (BNVA) | payer MEDICARE, OTHER, SELFPAY | PROVIDERS: PCP Nurse Practitioner Family; Referring Provider Nurse Practitioner Family; Visit Provider Student in an Organized Health Care Education/Training Program | DX: Z12.11 Encounter for screening for malignant neoplasm of colon (principal) ==

== ENCOUNTER 2024-02-16 10:32 | Day surgery (SDC) | payer MEDICARE, OTHER, SELFPAY ==
--- NOTE | 2024-02-15 18:06 | W.ANESPRE ---
General Info Date of Service Date Performed: 02/16/24 Height: 5 ft 7 in Weight: 101.633 kg Body Mass Index (BMI): 35.1 Surgical Procedure: Operation Date: 02/16/24 10:50 Proposed Procedure Side Surgeon manuel Mosher MD Meds Allergies and Home Medications Allergies Allergy/AdvReac Type Severity Reaction Status Date / Time doxycycline Allergy Mild ITCHING Verified 02/16/24 10:40 HANDS AND FEET Penicillins Allergy Unknown Itch Verified 02/16/24 10:40 Home Medication ?Medication ?Instructions ?Recorded multivitamin 1 ea PO DAILY 07/25/13 cholecalciferol (vitamin D3) 10 10 mcg PO DAILY 12/31/20 mcg (400 unit) capsule (Vitamin D3) aspirin 81 mg tablet,delayed 81 mg PO DAILY 01/16/21 release triamcinolone acetonide 0.1 % 1 applic topical BID PRN rash #80 08/01/22 topical cream grams rosuvastatin 20 mg tablet 20 mg PO DAILY #90 tabs 12/07/23 bisacodyl 5 mg tablet,delayed 5 mg PO ONCE #4 tabs 01/22/24 release (Dulcolax (bisacodyl)) polyethylene glycol 3350 17 17 g PO ONCE #238 grams 01/22/24 gram/dose oral powder metoprolol succinate 50 mg 50 mg PO HS 02/12/24 tablet,extended release 24 hr Current Visit Medications: Current Medications Generic Name Dose Route Start Last Admin Trade Name Freq PRN Reason Stop Dose Admin Ringer's Solution 1,000 mls @ 80 mls/hr 02/16/24 06:00 IV 02/16/24 23:59 INFUSION YOVANI IV Miscellaneous Supplies 1 each 02/16/24 06:00 Iv Access IV 02/16/24 23:59 DIRECTED YOVANI Sodium Chloride 0 ml 02/16/24 06:00 Normal Saline Flush 10 Ml Syr IV 02/16/24 23:59 PRN PRN Sodium Chloride 0 ml 02/16/24 06:00 Normal Saline 10 Ml Vial IJ 02/16/24 23:59 DIRECTED PRN Sterile Water 0 ml 02/16/24 06:00 Water,Injection,Sterile 10 Ml Vial IJ 02/16/24 23:59 DIRECTED PRN PFSH Active Problems Active Problems: Problem Status Onset Code 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 Barrera 12/2023 S/P cholecystectomy (03/05/04) S/P exploratory laparotomy (~1985) For evaluation of infertility S/P colonoscopy (09/02/18) Tobacco Smoking/Tobacco Use Status: Never Passive smoking exposure: No Second hand exposure: Yes Alcohol Alcohol Intake: never Substance Use Substance use: Never Substance use type: does not use Prental History History 0 Para Hx # Term Pregnancies Multiple births Hx # Pregnancies Ectopic pregnancies AB induced Hx Number of Living Children AB spontaneous Vital Signs and Lab Results Vital Signs Most Recent Vital Signs in EMR: Temp Pulse Resp BP Pulse Ox 36.6 C 83 18 152/74 H 98 02/16/24 10:43 02/16/24 10:43 02/16/24 10:43 02/16/24 10:43 02/16/24 10:43 Lab Results Blood Type / Crossmatch: No Data to Display Complete Blood Count: No Data to Display Complete Metabolic Panel: No Data to Display Liver Function Panel: No Data to Display Coagulation Panel: No Data to Display Cardiac Panel: No Data to Display Arterial Blood Gas: No Data to Display Venous Blood Gas: No Data to Display Pancreas Panel: No Data to Display Thyroid Panel: No Data to Display Infectious Disease: No Data to Display Blood Cultures: No Data to Display Toxicology Panel: No Data to Display Anesthesia Assessment and Plan Anesthesia History Personal History: PONV Family History: No Family History of Anesthesia Complications Exercise Tolerance Exercise Tolerance: Metabolic Equivalents>4 Cardiac & Pulmonary Exam Cardiac Exam: Normal S1/S2 Heart Sounds Pulmonary Exam: Clear Bilateral Breath Sounds Implantable Cardiac Device Does patient have a Pacemaker or an ICD?: No Airway Exam Known Difficult Airway: No Mallampati Class: 3 Mouth Opening: Normal (> 3cm) Thyromental Distance: Greater than 3 cm Neck Range of Motion: Full ROM Neck Circumference: Normal Teeth Condition: Normal Dentition ASA Classification ASA Score: ASA 3 Emergency Case?: No NPO Status NPO Status: NPO Clears >2 hours, Solids >8 hours Anesthesia Plan Resuscitation Status: Full Code Anesthesia Technique: General Anesthesia Airway Planned: Natural Airway Monitors Used: Standard Monitors Preoperative Comments:: 73 yo female for colo. PONV history Sig PMHx: celiac artery stenosis, HTN (well controlled), CAD (stent in 2020. No chest pain with exertion), preDM. thyroid nodules. EKG: sinus, LBBB
[2024-02-16 10:43] VITALS: BP 152/74; PULSE 83; RESP 18; TEMP 36.6; O2SAT 98
--- NOTE | 2024-02-16 11:06 | W.COLOREPORT ---
Date of service: 02/16/24 Time of Service: 11:06 Colonoscopy Report Procedure Description: PROCEDURES PERFORMED: 1. Colonoscopy PREOPERATIVE DIAGNOSIS: Surveillance colonoscopy, colon polyps POSTOPERATIVE DIAGNOSIS: Sigmoid diverticulosis SURGEON: Cristina Mosher MD INDICATION for procedure: The patient is a 73-year-old woman who has a history of adenomatous polyps removed at outside facilities/hospitalist. No family history of colon cancer. No symptoms. She is due for 5-year surveillance. FINDINGS: No new polyps. Very tortuous and redundant colon. The hepatic flexure was quite technically challenging to navigate making me suspect she has a very redundant transverse colon. The colon subjectively seems somewhat fibrotic throughout. There are scattered diverticular changes in the sigmoid colon. No active disease and no stenosis. No significant hemorrhoid disease was appreciated. SURVEILLANCE interval/FOLLOW-UP: Since there were no new polyps, I think the patient can consider another colonoscopy in 7 years depending on her life expectancy at that time. SPECIMENS: None EBL: Minimal COMPLICATIONS: None QUALITY of prep: Excellent Procedure in detail: The patient gave written consent and was in agreement with the indications, the potential risks as well as the benefits of the procedure. They were taken to the endoscopy suite and laid in the left lateral decubitus position. A timeout was performed and anesthesia was administered which was tolerated well. I started the procedure. Digital rectal and visual examination was performed and grossly within normal limits. A well-lubricated flexible colonoscope was then introduced and passed all the way to the cecum identified by the ileocecal valve and the appendiceal orifice. The scope was then slowly withdrawn with the above-noted findings. The patient tolerated the procedure well and was taken to the PACU in hemodynamically stable condition.
[2024-02-16 11:07] VITALS: BMI 35.1
--- NOTE | 2024-02-16 11:07 | W.PM.DSUDISC ---
Date of service: 02/16/24 Time of Service: 11:07 Discharge Plan Disposition Patient Disposition: Home Condition: Good Discharge Details Attending Provider: Sagar Mosher Primary Care Provider: Yudy Vigil Home Meds and New Rx's Prescriptions: No Action aspirin 81 mg tablet,delayed release (DR/EC) 81 mg PO DAILY triamcinolone acetonide 0.1 % cream 1 applic topical BID PRN (Reason: rash) Qty: 80 1RF bisacodyl [Dulcolax (bisacodyl)] 5 mg tablet,delayed release (DR/EC) 5 mg PO ONCE Qty: 4 0RF Rx Instructions: Take per colonoscopy instructions provided by ordering providers office polyethylene glycol 3350 17 gram/dose powder 17 g PO ONCE Qty: 238 0RF Rx Instructions: Take per colonoscopy instructions provided by ordering providers office multivitamin 1 EACH tablet 1 ea PO DAILY rosuvastatin 20 mg tablet 20 mg PO DAILY Qty: 90 3RF metoprolol succinate 50 mg tablet extended release 24 hr 50 mg PO HS cholecalciferol (vitamin D3) [Vitamin D3] 10 mcg (400 unit) Capsule 10 mcg PO DAILY Discharge Instructions Additional Instructions: FINDINGS: No new polyps today. Mild diverticular disease was seen today (diverticulosis). This is an extremely common, benign condition and nothing needs to be done about it. You can probably do your next colonoscopy in 7 years. Activity:: Activity as Tolerated Diet:: As Tolerated
[2024-02-16] MEDS: Normal Saline Flush 10 ML SYR IV (11:12)
[2024-02-16 12:04] VITALS: BP 134/65; PULSE 70; RESP 18; TEMP 36; O2SAT 94
--- NOTE | 2024-02-16 12:12 | W.ANESPOSTOP ---
Postoperative Evaluation Date, Time and Location Date Performed: 02/16/24 Time Performed: 12:12 Patient Location: Day [facility] Unit Vital Signs Most Recent Imported Vital Signs: Most Recent Vital Signs Temp Pulse Resp BP Pulse Ox 36 C L 70 18 134/65 94 02/16/24 12:04 02/16/24 12:04 02/16/24 12:04 02/16/24 12:04 02/16/24 12:04 Pain Score Most Recent Pain Score: Most Recent Pain Score Pain Level 0 02/16/24 12:04 Assessment Mental Status: Awake (Alert & Oriented to Patient Baseline) Airway and Respiratory Function: Patent airway with normal (patient baseline) respiratory exam Cardiovascular Function: Hemodynamically Stable Hydration Status: Adequately Hydrated Nausea & Vomiting: No Nausea or Vomiting Pain: Pt. Denies Any Pain Peripheral Nerve Block: Patient did not receive a nerve block
[2024-02-16 12:30] VITALS: BP 127/58; PULSE 64; RESP 16; TEMP 36.6; O2SAT 97
== END 2024-02-16 12:45 | disposition home or self-care (01) ==
PROVIDERS: PCP Nurse Practitioner Family; Visit Provider Student in an Organized Health Care Education/Training Program
PROC: 0DJD8ZZ Inspection of Lower Intestinal Tract, Via Natural or Artificial Opening Endoscopic (ICD-10-PCS; CPT 45378; principal; 2024-02-16 10:45)
DX: Z12.11 Encounter for screening for malignant neoplasm of colon (principal); K57.30 Diverticulosis of large intestine without perforation or abscess without bleeding; I10 Essential (primary) hypertension; R73.03 Prediabetes
CPT/HCPCS: G0105; 00123; J2405; J2704

== ENCOUNTER 2025-01-05 04:02 | Outpatient (CLI) | payer MEDICARE, OTHER, SELFPAY ==
[2025-01-05 08:02] LABS: Hemoglobin A1C 5.6 % (<5.7)
[2025-01-05 08:27] LABS: Anion Gap 8.8 mmol/L (3-11); BUN 23 mg/dL (7-18); CO2 27.2 mmol/L (21.0-32.0); Calcium 9.2 mg/dL (8.5-10.1); Chloride 105 mmol/L (98-107); Estimated GFR 91.83 (mL/min/1.73m2); Glucose 95 mg/dL (74-106); Potassium 4.1 mmol/L (3.5-5.1); Sodium 141 mmol/L (136-145); TSH (W/Ref FT4) 2.64 uIU/mL (0.36-3.74)
== END 2025-01-05 04:03 | disposition home or self-care (01) ==
PROVIDERS: PCP Nurse Practitioner Family; Visit Provider Nurse Practitioner Family
DX: R73.03 Prediabetes (principal); I25.10 Atherosclerotic heart disease of native coronary artery without angina pectoris; E04.2 Nontoxic multinodular goiter
CPT/HCPCS: 36415; 80048; 83036; 84443

== ENCOUNTER 2025-01-19 07:50 | Outpatient (CLI) | payer MEDICARE, OTHER, SELFPAY ==
--- NOTE | 2025-01-19 07:45 | RT.EKG_ITS ---
APPROVED REPORT Exam: Resting ECG Reason for Exam: CAD Patient Location: O HR:71 bpm ECG Measurements Heart Rate 71 AXIS OH 192 P 26 QRSd 150 QRS -30 QT 437 T 107 QTc 475 Conclusion Sinus rhythm...normal P axis, V-rate 50- 99 Left bundle branch block...QRSd>120, broad/notched R
== END 2025-01-19 07:51 | disposition home or self-care (01) ==
LOC: DI.CARD 07:51
PROVIDERS: PCP Nurse Practitioner Family; Visit Provider Internal Medicine Cardiovascular Disease
DX: I44.7 Left bundle-branch block, unspecified (principal); I25.10 Atherosclerotic heart disease of native coronary artery without angina pectoris
CPT/HCPCS: 93010

== ENCOUNTER → 2025-01-19 09:49 | Outpatient (BNVA) | payer MEDICARE, OTHER, SELFPAY | PROVIDERS: PCP Nurse Practitioner Family; Visit Provider Internal Medicine Cardiovascular Disease | DX: I25.10 Atherosclerotic heart disease of native coronary artery without angina pectoris (principal); I44.7 Left bundle-branch block, unspecified | CPT/HCPCS: 99213; 93005 ==